=== PATIENT | female | born 1950 | race Caucasian/White ===

== ENCOUNTER → 2018-09-25 | Outpatient (CLI) | payer MEDICARE | END | disposition home or self-care (01) | LOC: CFH 08:37 | PROVIDERS: ATTEND Nurse Practitioner Family | DX: I67.82 Cerebral ischemia (principal) | CPT/HCPCS: 70551 ==

== ENCOUNTER → 2018-11-28 | Outpatient (CLI) | payer MEDICARE | END | disposition home or self-care (01) | LOC: CFH 11:17 | PROVIDERS: ATTEND Nurse Practitioner Family | DX: Z12.31 Encounter for screening mammogram for malignant neoplasm of breast (principal); N63.12 Unspecified lump in the right breast, upper inner quadrant | CPT/HCPCS: 77063; 77067 ==

== ENCOUNTER → 2018-12-10 | Outpatient (CLI) | payer MEDICARE | END | disposition home or self-care (01) | LOC: CFH 14:21 | PROVIDERS: ATTEND Nurse Practitioner Family | DX: N63.11 Unspecified lump in the right breast, upper outer quadrant (principal) | CPT/HCPCS: 77065 ==

== ENCOUNTER 2018-12-17 09:28 | Outpatient (CLI) | payer MEDICARE ==
[2018-12-17] MEDS ORDERED: LIDOCAINE 1%-EPI 1:100K, 20ML ONE (13:14)
[2018-12-17] MEDS ORDERED: LIDOCAINE 1%, 20ML ONE (13:14)
[2018-12-17] MEDS ORDERED: SODIUM BICARBONATE 4.0%, 5ML ONE (13:14)
== END 2018-12-17 23:59 | disposition home or self-care (01) ==
LOC: CFH 09:28
PROVIDERS: ATTEND Nurse Practitioner Family
DX: C50.411 Malignant neoplasm of upper-outer quadrant of right female breast (principal); C50.211 Malignant neoplasm of upper-inner quadrant of right female breast; Z17.0 Estrogen receptor positive status [ER+]
CPT/HCPCS: 19083; 19084; 38505; 77065; 88305; 88341; 88342; 88360; 88361; J3490; 19285

== ENCOUNTER → 2018-12-25 | Outpatient (CLI) | payer MEDICARE ==
[~2018-12-25] MED LIST: GADOBUTROL 10 MMOL/10 ML VIAL ONE
== END | disposition home or self-care (01) ==
LOC: CFH 08:00
PROVIDERS: ATTEND Genetic Counselor, MS
DX: C50.911 Malignant neoplasm of unspecified site of right female breast (principal); E04.2 Nontoxic multinodular goiter
CPT/HCPCS: A9585; C8908; C8937

== ENCOUNTER 2019-01-21 12:55 | Outpatient (CLI) | payer MEDICARE ==
[2019-01-21] MEDS ORDERED: LIDOCAINE-MPF 1%, 5ML ONE (13:26)
[2019-01-22] MEDS ORDERED: NORT75CA PO (15:11)
[2019-01-22] MEDS ORDERED: [UNRECOGNIZED DRUG - CODE] VG (15:11)
[2019-01-22] MEDS ORDERED: ONDA4TAB13 SL (15:11)
[2019-01-22] MEDS ORDERED: CHOL5000 PO (15:11)
[2019-01-22] MEDS ORDERED: ALPR-475 PO (15:11)
[2019-01-22] MEDS ORDERED: LISI-167 PO (15:11)
[2019-01-22] MEDS ORDERED: PROP10DR4 EACHEYE (15:11)
[2019-01-22] MEDS ORDERED: ROSU20TA2 PO (15:11)
[2019-01-22] MEDS ORDERED: CETI10TA24 PO (15:11)
[2019-01-22] MEDS ORDERED: TOLN133P TD (15:11)
[2019-01-22] MEDS ORDERED: SERT100T32 PO (15:11)
[2019-01-22] MEDS ORDERED: LIRA0.6P SQ (15:11)
[2019-01-22] MEDS ORDERED: LORA1TAB PO (15:11)
[2019-01-22] MEDS ORDERED: LIDO76.5 TD (15:11)
[2019-01-22] MEDS ORDERED: FLUN25SP NS (15:11)
[2019-01-22] MEDS ORDERED: SILV20CR13 TD (15:11)
[2019-01-22] MEDS ORDERED: PIOG30TA4 PO (15:11)
[2019-01-22] MEDS ORDERED: INSU100I32 TD (15:11)
[2019-01-22] MEDS ORDERED: LACT1CAP37 PO (15:11)
[2019-01-22] MEDS ORDERED: MECL25TA4 PO (15:11)
[2019-01-22] MEDS ORDERED: RANI150T4 PO (15:11)
[2019-01-22] MEDS ORDERED: CLOP75TA52 PO (15:11)
[2019-01-22] MEDS ORDERED: OMEG1CAP34 PO (15:11)
[2019-01-22] MEDS ORDERED: FESO8TAB PO (15:11)
[2019-01-22] MEDS ORDERED: DAPA10TA PO (15:11)
[2019-01-22] MEDS ORDERED: CLOT15CR5 TD (15:11)
[2019-01-22] MEDS ORDERED: FLUC150T2 PO (15:11)
[2019-01-22] MEDS ORDERED: ATEN25TA PO (15:11)
[2019-01-22] MEDS ORDERED: FURO20TA3 PO (15:11)
[2019-01-22] MEDS ORDERED: MULT1TAB60 PO (15:11)
[2019-01-22] MEDS ORDERED: PANT20TA3 PO (15:11)
== END 2019-01-21 23:59 | disposition home or self-care (01) ==
LOC: RAD 12:55
PROVIDERS: ATTEND Genetic Counselor, MS
DX: E04.1 Nontoxic single thyroid nodule (principal)
CPT/HCPCS: 10005; 88173

== ENCOUNTER 2019-01-22 14:30 | Outpatient (CLI) | payer MEDICARE ==
[2019-01-22] MEDS ORDERED: [UNRECOGNIZED DRUG - CODE] VG (15:11)
[2019-01-22] MEDS ORDERED: MULT1TAB60 PO (15:11)
[2019-01-22] MEDS ORDERED: FESO8TAB PO (15:11)
[2019-01-22] MEDS ORDERED: LISI-167 PO (15:11)
[2019-01-22] MEDS ORDERED: LACT1CAP37 PO (15:11)
[2019-01-22] MEDS ORDERED: PANT20TA3 PO (15:11)
[2019-01-22] MEDS ORDERED: SILV20CR13 TD (15:11)
[2019-01-22] MEDS ORDERED: FLUC150T2 PO (15:11)
[2019-01-22] MEDS ORDERED: ROSU20TA2 PO (15:11)
[2019-01-22] MEDS ORDERED: DAPA10TA PO (15:11)
[2019-01-22] MEDS ORDERED: ATEN25TA PO (15:11)
[2019-01-22] MEDS ORDERED: SERT100T32 PO (15:11)
[2019-01-22] MEDS ORDERED: ALPR-475 PO (15:11)
[2019-01-22] MEDS ORDERED: INSU100I32 TD (15:11)
[2019-01-22] MEDS ORDERED: CETI10TA24 PO (15:11)
[2019-01-22] MEDS ORDERED: CLOP75TA52 PO (15:11)
[2019-01-22] MEDS ORDERED: OMEG1CAP34 PO (15:11)
[2019-01-22] MEDS ORDERED: LIDO76.5 TD (15:11)
[2019-01-22] MEDS ORDERED: PIOG30TA4 PO (15:11)
[2019-01-22] MEDS ORDERED: CHOL5000 PO (15:11)
[2019-01-22] MEDS ORDERED: LORA1TAB PO (15:11)
[2019-01-22] MEDS ORDERED: FURO20TA3 PO (15:11)
[2019-01-22] MEDS ORDERED: LIRA0.6P SQ (15:11)
[2019-01-22] MEDS ORDERED: CLOT15CR5 TD (15:11)
[2019-01-22] MEDS ORDERED: NORT75CA PO (15:11)
[2019-01-22] MEDS ORDERED: FLUN25SP NS (15:11)
[2019-01-22] MEDS ORDERED: MECL25TA4 PO (15:11)
[2019-01-22] MEDS ORDERED: ONDA4TAB13 SL (15:11)
[2019-01-22] MEDS ORDERED: RANI150T4 PO (15:11)
[2019-01-22] MEDS ORDERED: PROP10DR4 EACHEYE (15:11)
[2019-01-22] MEDS ORDERED: TOLN133P TD (15:11)
[2019-01-22 15:58] LABS: ALANINE AMINOTRANSFERASE 37 U/L (12-78); ALBUMIN 3.5 g/dL (3.4-5.0); ANION GAP 4 mmol/L (5-15); CALCIUM 9.5 mg/dL (8.5-10.1); CHLORIDE 107 mmol/L (98-107); CREATININE 1.04 mg/dL (0.55-1.02)
[2019-01-22 16:01] LABS: ALKALINE PHOSPHATASE 53 U/L (45-117); BILIRUBIN,TOTAL 0.3 mg/dL (0.2-1.0); TOTAL PROTEIN 7.5 g/dL (6.4-8.2)
[2019-01-22 16:19] LABS: BASOPHILS # (AUTO) 0.03 x10^3/uL (0-0.1); BASOPHILS % (AUTO) 1 % (0-1); EOSINOPHILS # (AUTO) 0.11 x10^3/uL (0-0.4); EOSINOPHILS % (AUTO) 2 % (1-7); LYMPHOCYTES # (AUTO) 2.42 x10^3/uL (1-3.4); LYMPHOCYTES % (AUTO) 36 % (22-44); MD NO; MEAN CORPUSCULAR HEMOGLOBIN 22.9 pg (27.0-34.8); MEAN CORPUSCULAR HGB CONC 31.1 g/dL (32.4-35.8); MEAN CORPUSCULAR VOLUME 73.8 fL (80-100); MEAN PLATELET VOLUME 10.3 fL (7.4-10.4); MONOCYTES # (AUTO) 0.61 x10^3/uL (0.2-0.8); MONOCYTES % (AUTO) 9 % (2-9); NEUTROPHILS # (AUTO) 3.53 x10^3/uL (1.8-6.8); NEUTROPHILS % (AUTO) 53 % (42-75); PLATELET COUNT 214 x10^3/uL (130-400); RED BLOOD COUNT 5.71 x10^6/uL (3.82-5.3); RED CELL DISTRIBUTION WIDTH 16.1 % (9.6-15.2)
== END 2019-01-22 23:59 | disposition home or self-care (01) ==
LOC: STAR 14:30
PROVIDERS: ATTEND Surgery
DX: Z01.812 Encounter for preprocedural laboratory examination (principal); C50.811 Malignant neoplasm of overlapping sites of right female breast; R94.31 Abnormal electrocardiogram [ECG] [EKG]
CPT/HCPCS: 36415; 80053; 85025; 93005

== ENCOUNTER 2019-01-29 07:42 | Day surgery (SDC) | payer MEDICARE ==
[~2019-01-29] VITALS: Ht 162.6 cm; Wt 103.4 kg
[~2019-01-29 07:42] MED LIST changes: +ALPR0.5T7 PO; +ATEN25TA PO; +CETI10TA24 PO; +CHOL5000 PO; +CLOP75TA52 PO; +CLOT15CR5 TD; +DAPA10TA PO; +FESO8TAB PO; +FLUC150T2 PO; +FLUN25SP NS; +FURO20TA3 PO; -GADOBUTROL 10 MMOL/10 ML VIAL ONE; +INSU100I32 TD; +LACT1CAP37 PO; +LIDO76.5 TD; +LIRA0.6P SQ; +LISI-167 PO; +LORA1TAB PO; +MECL25TA4 PO; +MULT1TAB60 PO; +NORT75CA PO; +OMEG1CAP34 PO; +ONDA4TAB13 SL; +PANT20TA3 PO; +PIOG30TA4 PO; +PROP10DR4 EACHEYE; +RANI150T4 PO; +ROSU20TA2 PO; +SERT100T32 PO; +SILV20CR13 TD; +TOLN133P TD; +[UNRECOGNIZED DRUG - CODE] VG
[2019-01-29] MEDS ORDERED: CEFAZOLIN 1,000 MG ONE ×2 (08:56→12:34)
[2019-01-29] MEDS ORDERED: BUPIVACAINE/PF-EPI 0.5% 1:200K ONE (08:56)
[2019-01-29] MEDS ORDERED: GENTAMICIN 80 MG/2 ML ONE (08:56)
[2019-01-29] MEDS ORDERED: BACITRACIN 50,000 UNIT ONE (08:57)
[2019-01-29] MEDS ORDERED: ISOSULFAN BLUE 10 MG/ML, 5ML IV ONE (08:57)
[2019-01-29] MEDS ORDERED: SODIUM BICARBONATE 4.0%, 5ML ONE (09:38)
[2019-01-29] MEDS ORDERED: LIDOCAINE 1%, 20ML ONE (09:38)
[2019-01-29] MEDS ORDERED: LIDOCAINE 1%-EPI 1:100K, 20ML ONE (09:38)
[2019-01-29 10:42] VITALS: BP 144/87
[2019-01-29] MEDS ORDERED: LACTATED RINGERS 1,000 ML IV SCH ×2 (10:56→21:30)
[2019-01-29] MEDS ORDERED: ALBUTEROL SULFATE 2.5 MG/3 ML NPPB PRN (11:00)
[2019-01-29] MEDS ORDERED: PROMETHAZINE 25 MG/ML, 1ML IV PRN (11:00)
[2019-01-29] MEDS ORDERED: hydrALAzine 20 MG/ML, 1ML IV PRN (11:00)
[2019-01-29] MEDS ORDERED: ACETAMINOPHEN 500 MG TABLET PO ONE (11:00)
[2019-01-29] MEDS ORDERED: HALOPERIDOL 5 MG/ML IV PRN ×2 (11:00)
[2019-01-29] MEDS ORDERED: OXYcodone 5 MG/5 ML ORAL.SOL UDC PO PRN (11:00)
[2019-01-29] MEDS ORDERED: DIAZEPAM 5 MG/ML, 2ML IVPush PRN (11:00)
[2019-01-29] MEDS ORDERED: MIDAZOLAM 1 MG/ML, 2ML IV PRN (11:00)
[2019-01-29] MEDS ORDERED: LABETALOL 5MG/ML, 20ML IV PRN (11:00)
[2019-01-29] MEDS ORDERED: DEXTROSE 50%, 50ML SYRINGE IVPush ONE (11:00)
[2019-01-29] MEDS ORDERED: PROCHLORPERAZINE 5 MG/ML, 2ML IV PRN (11:00)
[2019-01-29] MEDS ORDERED: LORazepam 2 MG/ML, 1ML IVPush PRN (11:00)
[2019-01-29] MEDS ORDERED: DIPHENHYDRAMINE 50 MG/ML, 1ML IVPush PRN (11:00)
[2019-01-29] MEDS ORDERED: GABAPENTIN 300 MG CAPSULE PO ONE (11:00)
[2019-01-29] MEDS ORDERED: ONDANSETRON ODT 8 MG PO ONE (11:00)
[2019-01-29] MEDS ORDERED: MEPERIDINE/PF 25MG/0.5ML IVPush PRN (11:00)
[2019-01-29] MEDS ORDERED: METOPROLOL 1 MG/ML, 5ML IV PRN (11:00)
[2019-01-29] MEDS ORDERED: LOVENOX SQ (11:03)
[2019-01-29] MEDS ORDERED: FENTANYL PF 250 MCG/5ML ONE (11:09)
[2019-01-29] MEDS ORDERED: MIDAZOLAM 1 MG/ML, 2ML ONE (11:09)
[2019-01-29] MEDS ORDERED: SUCCINYLCHOLINE 20 MG/ML, 10ML ONE (12:34)
[2019-01-29] MEDS ORDERED: GLYCOPYRROLATE 0.2MG/1ML, 5ML ONE (12:34)
[2019-01-29] MEDS ORDERED: PROPOFOL 10 MG/ML, 20ML ONE (12:34)
[2019-01-29] MEDS ORDERED: ONDANSETRON 2MG/ML, 2ML ONE (12:34)
[2019-01-29] MEDS ORDERED: NEOSTIGMINE 1 MG/ML, 10ML ONE (12:34)
[2019-01-29] MEDS ORDERED: ROCURONIUM 10MG/ML,5ML ONE (12:34)
[2019-01-29] MEDS ORDERED: DEXAMETHASONE 4 MG/ML, 1ML ONE (12:34)
[2019-01-29] MEDS ORDERED: OXYcodone 5 MG/5 ML ORAL.SOL UDC ONE (15:09)
[2019-01-29] MEDS ORDERED: FENTANYL PF 100 MCG/2ML ONE (15:09)
[2019-01-29] MEDS: FENTANYL PF 100 MCG/2ML IV PRN ×2 (15:11→15:50)
[2019-01-29] MEDS ORDERED: HYDROmorphone 2 MG/ML, 1ML ONE (15:50)
[2019-01-29] MEDS: HYDROmorphone 2 MG/ML, 1ML IVPush PRN ×2 (15:51→15:56)
[2019-01-29 19:30] VITALS: BP 141/77
[2019-01-29] MEDS ORDERED: ONDANSETRON 2MG/ML, 2ML IVPush PRN (21:30)
[2019-01-29] MEDS ORDERED: MORPHINE SULFATE 4 MG/ML, 1ML IVPush PRN (21:30)
== END 2019-01-29 22:30 | disposition home or self-care (01) ==
LOC: OR 07:42 → 4NOR 19:16 → OUT 22:30
PROVIDERS: ATTEND Plastic Surgery
DX: C50.811 Malignant neoplasm of overlapping sites of right female breast (principal); N62 Hypertrophy of breast; N60.42 Mammary duct ectasia of left breast; E11.9 Type 2 diabetes mellitus without complications; K21.9 Gastro-esophageal reflux disease without esophagitis; E78.5 Hyperlipidemia, unspecified; I10 Essential (primary) hypertension; F32.9 Major depressive disorder, single episode, unspecified; G47.33 Obstructive sleep apnea (adult) (pediatric); J45.909 Unspecified asthma, uncomplicated; E66.9 Obesity, unspecified; Z68.39 Body mass index [BMI] 39.0-39.9, adult; Z79.02 Long term (current) use of antithrombotics/antiplatelets; Z79.899 Other long term (current) drug therapy; Z86.73 Personal history of transient ischemic attack (TIA), and cerebral infarction without residual deficits; Z86.718 Personal history of other venous thrombosis and embolism; Z88.2 Allergy status to sulfonamides; Z88.8 Allergy status to other drugs, medicaments and biological substances; Z91.012 Allergy to eggs; Z91.011 Allergy to milk products; Z98.51 Tubal ligation status; Z80.3 Family history of malignant neoplasm of breast
CPT/HCPCS: 19281; 19301; 19318; 19366; 38525; 38792; 76098; 82962; 88305; 88307; 88329; 88333; A9541; C1729; J0330; J0690; J1100; J1170; J2250; J2405; J2704; J2710; J3010; J3490; J7120; Q0162; G0378; J1580

== ENCOUNTER 2019-02-12 07:18 | Outpatient (CLI) | payer MEDICARE ==
[~2019-02-12 07:18] MED LIST changes: +LOVENOX SQ
== END 2019-02-12 23:59 | disposition home or self-care (01) ==
LOC: ROC 07:18
PROVIDERS: ATTEND Radiology Radiation Oncology
DX: C50.411 Malignant neoplasm of upper-outer quadrant of right female breast (principal)
CPT/HCPCS: G0463

== ENCOUNTER 2019-04-27 10:19 | Outpatient (CLI) | payer MEDICARE | END 2019-04-27 23:59 | disposition home or self-care (01) | LOC: CFH 10:19 → EDSTATUS 11:00 → CFH 23:59 | PROVIDERS: ATTEND Internal Medicine Hematology & Oncology | DX: Z13.820 Encounter for screening for osteoporosis (principal); N95.9 Unspecified menopausal and perimenopausal disorder; R60.9 Edema, unspecified; M79.662 Pain in left lower leg; M79.661 Pain in right lower leg; C50.811 Malignant neoplasm of overlapping sites of right female breast; Z17.0 Estrogen receptor positive status [ER+] | CPT/HCPCS: 77080; 93970; G0463 ==

== ENCOUNTER → 2019-06-24 | Outpatient (CLI) | payer MEDICARE ==
[~2019-06-24] MED LIST changes: +REGADENOSON 0.4 MG/5 ML SYRINGE ONE
== END | disposition home or self-care (01) ==
LOC: CFH 06:47
PROVIDERS: ATTEND Internal Medicine Cardiovascular Disease
DX: I08.8 Other rheumatic multiple valve diseases (principal); I99.9 Unspecified disorder of circulatory system; Z86.73 Personal history of transient ischemic attack (TIA), and cerebral infarction without residual deficits; Z85.3 Personal history of malignant neoplasm of breast
CPT/HCPCS: 78452; 93017; 93306; A9502; J2785

== ENCOUNTER 2019-07-29 13:31 | Outpatient (CLI) | payer MEDICARE ==
[~2019-07-29 13:31] MED LIST changes: -REGADENOSON 0.4 MG/5 ML SYRINGE ONE
== END 2019-07-29 23:59 | disposition home or self-care (01) ==
LOC: CFH 13:31
PROVIDERS: ATTEND Radiology Radiation Oncology
DX: C50.411 Malignant neoplasm of upper-outer quadrant of right female breast (principal); R92.1 Mammographic calcification found on diagnostic imaging of breast
CPT/HCPCS: 77065; G0279

== ENCOUNTER → 2019-08-12 | Outpatient (CLI) | payer MEDICARE | END | disposition home or self-care (01) | LOC: ROC 08:02 | PROVIDERS: ATTEND Radiology Radiation Oncology | DX: C50.411 Malignant neoplasm of upper-outer quadrant of right female breast (principal) | CPT/HCPCS: G0463 ==

== ENCOUNTER → 2019-08-24 | Outpatient (CLI) | payer MEDICARE ==
[~2019-08-24] MED LIST changes: +ATEN50TA41 PO; -CETI10TA24 PO; +CETI10TA26 PO; +FAMO40TA61 PO; +LETR2.5T3 PO; +MECL-101 PO; -MECL25TA4 PO; -PIOG30TA4 PO; +PIOG30TA68 PO; +RIVA10TA2 PO; +[UNRECOGNIZED DRUG - CODE] TD
[2019-08-24 09:54] LABS: PROTHROMBIN TIME 10.6 Seconds (9.6-11.5)
== END | disposition home or self-care (01) ==
LOC: LAB 09:28
PROVIDERS: ATTEND Nurse Practitioner
DX: I82.402 Acute embolism and thrombosis of unspecified deep veins of left lower extremity (principal)
CPT/HCPCS: 36415; 85610; 85730

== ENCOUNTER → 2019-08-24 | Outpatient (CLI) | payer MEDICARE ==
[2019-08-24 09:57] LABS: ALBUMIN 3.7 g/dL (3.4-5.0); ANION GAP 7 mmol/L (5-15); CALCIUM 9.5 mg/dL (8.5-10.1); CHLORIDE 107 mmol/L (98-107); CHOLESTEROL, TOTAL 168 mg/dL (140-239); CREATININE 1.07 mg/dL (0.55-1.02); TOTAL IRON BINDING CAPACITY 395 mcg/dL (250-450); TRIGLYCERIDES 69 mg/dL (50-200); VLDL CHOLESTEROL 14 mg/dL (0-25)
[2019-08-24 10:16] LABS: MEAN CORPUSCULAR HGB CONC 31.5 g/dL (32.4-35.8); MEAN CORPUSCULAR VOLUME 73.2 fL (80-100); MEAN PLATELET VOLUME 9.8 fL (7.4-10.4); PLATELET COUNT 213 x10^3/uL (130-400); RED BLOOD COUNT 5.76 x10^6/uL (3.82-5.3); RED CELL DISTRIBUTION WIDTH 16.1 % (9.6-15.2)
[2019-08-24 10:23] LABS: % IRON SATURATION 21 % (20-55); ALANINE AMINOTRANSFERASE 31 U/L (12-78); ALKALINE PHOSPHATASE 59 U/L (45-117); BILIRUBIN,TOTAL 0.4 mg/dL (0.2-1.0); HDL CHOL % 49 % (28-40); HDL CHOLESTEROL (DIRECT) 83 mg/dL (40-60); IRON LEVEL 83 mcg/dL (50-170); LDL CHOLESTEROL,CALCULATED 71 mg/dL (54-169); LDL/HDL RATIO 0.9 (0.5-3.0); PREALBUMIN 22.4 mg/dL (20.0-40.0); TOTAL PROTEIN 7.8 g/dL (6.4-8.2); TRANSFERRIN 302 mg/dL (200-360)
[2019-08-24 10:30] LABS: BASOPHILS % (AUTO) 0 % (0-1); EOSINOPHILS # (AUTO) 0.06 x10^3/uL (0-0.4); EOSINOPHILS % (AUTO) 1 % (1-7); LYMPHOCYTES # (AUTO) 1.04 x10^3/uL (1-3.4); LYMPHOCYTES % (AUTO) 23 % (22-44); MD SCAN; MONOCYTES # (AUTO) 0.63 x10^3/uL (0.2-0.8); MONOCYTES % (AUTO) 14 % (2-9); NEUTROPHILS % (AUTO) 62 % (42-75)
== END | disposition home or self-care (01) ==
LOC: STAR 08:14
PROVIDERS: ATTEND Thoracic Surgery (Cardiothoracic Vascular Surgery)
DX: Z01.818 Encounter for other preprocedural examination (principal)
CPT/HCPCS: 36415; 71046; 80053; 80061; 82306; 82607; 82728; 83540; 83550; 83970; 84134; 84432; 84466; 85025; 86800; 93005

== ENCOUNTER → 2019-12-08 | Outpatient (CLI) | payer MEDICARE ==
[~2019-12-08] MED LIST changes: +HYDR-3241 PO
== END | disposition home or self-care (01) ==
LOC: CFH 11:59
PROVIDERS: ATTEND Internal Medicine Hematology & Oncology
DX: Z12.31 Encounter for screening mammogram for malignant neoplasm of breast (principal)
CPT/HCPCS: 77063; 77067

== ENCOUNTER → 2019-12-21 | Outpatient (CLI) | payer MEDICARE | END | disposition home or self-care (01) | LOC: CFH 10:24 | PROVIDERS: ATTEND Nurse Practitioner Family | DX: R41.3 Other amnesia (principal) | CPT/HCPCS: 70551 ==

== ENCOUNTER 2020-01-01 14:41 | Outpatient (CLI) | payer MEDICARE ==
[~2020-01-01 14:41] MED LIST changes: +CLOT15CR26 TD; -CLOT15CR5 TD; +MULT-449 PO; -MULT1TAB60 PO
== END 2020-01-01 23:59 | disposition home or self-care (01) ==
LOC: CFH 14:41
PROVIDERS: ATTEND Genetic Counselor, MS
DX: R92.2 Inconclusive mammogram (principal)
CPT/HCPCS: 76641

== ENCOUNTER → 2020-03-14 | Outpatient (CLI) | payer MEDICARE | END | disposition home or self-care (01) | LOC: ROC 07:09 | PROVIDERS: ATTEND Radiology Radiation Oncology | DX: C50.411 Malignant neoplasm of upper-outer quadrant of right female breast (principal) | CPT/HCPCS: G0463 ==

== ENCOUNTER → 2020-03-30 | Outpatient (CLI) | payer MEDICARE ==
[~2020-03-30] MED LIST changes: -CETI10TA26 PO; +CETI10TA76 PO; -PANT20TA3 PO; +PANT20TA4 PO
== END | disposition home or self-care (01) ==
LOC: CFH 07:31
PROVIDERS: ATTEND Genetic Counselor, MS
DX: R74.8 Abnormal levels of other serum enzymes (principal)
CPT/HCPCS: 76700

== ENCOUNTER → 2020-08-12 | Outpatient (CLI) | payer MEDICARE | END | disposition home or self-care (01) | LOC: RAD 07:35 | PROVIDERS: ATTEND Thoracic Surgery (Cardiothoracic Vascular Surgery) | DX: Z09 Encounter for follow-up examination after completed treatment for conditions other than malignant neoplasm (principal); R11.0 Nausea; R10.11 Right upper quadrant pain | CPT/HCPCS: 78227; A9537 ==

== ENCOUNTER → 2020-08-16 | Outpatient (CLI) | payer MEDICARE ==
[~2020-08-16] MED LIST changes: +ASCO120P PO; +CANA300T PO; +CLOT30CR17 TP; +HALO15OI4 TP; +LIDO76.5 TP; +LORA-446 PO; +OMEP40CA42 PO; +PROP10DR2 EACHEYE; +SILV20CR13 TP; +TERB125S TP; +TOLT4CAP12 PO; +VIACTIV CALCIUM PO; +ZINC50CA PO; +[UNRECOGNIZED DRUG - OTHER] PO; +[UNRECOGNIZED DRUG - OTHER] PO; +omega 3 PO
[2020-08-16 12:52] LABS: INTERNATIONAL NORMALIZED RATIO 0.97 (0.93-1.1); PROTHROMBIN TIME 10.4 Seconds (9.6-11.5)
[2020-08-16 12:53] LABS: ALBUMIN 3.8 g/dL (3.4-5.0); ANION GAP 6 mmol/L (5-15); BASOPHILS % (AUTO) 1 % (0-1); CALCIUM 9.3 mg/dL (8.5-10.1); CHLORIDE 108 mmol/L (98-107); EOSINOPHILS % (AUTO) 2 % (1-7); LYMPHOCYTES % (AUTO) 25 % (22-44); MEAN CORPUSCULAR HEMOGLOBIN 22.4 pg (27.0-34.8); MEAN CORPUSCULAR HGB CONC 31.6 g/dL (32.4-35.8); MEAN PLATELET VOLUME 9.4 fL (7.4-10.4); MONOCYTES % (AUTO) 12 % (2-9); NEUTROPHILS % (AUTO) 61 % (42-75); PLATELET COUNT 206 x10^3/uL (130-400); RED BLOOD COUNT 5.49 x10^6/uL (3.82-5.3); RED CELL DISTRIBUTION WIDTH 16.3 % (9.6-15.2)
[2020-08-16 12:55] LABS: MD NO
[2020-08-16 12:57] LABS: ALANINE AMINOTRANSFERASE 74 U/L (12-78); ALKALINE PHOSPHATASE 85 U/L (45-117); BILIRUBIN,TOTAL 0.5 mg/dL (0.2-1.0); CREATININE 0.96 mg/dL (0.55-1.02); TOTAL PROTEIN 7.8 g/dL (6.4-8.2)
== END | disposition home or self-care (01) ==
LOC: STAR 11:17
PROVIDERS: ATTEND Orthopaedic Surgery
DX: Z01.810 Encounter for preprocedural cardiovascular examination (principal); Z01.818 Encounter for other preprocedural examination; M17.12 Unilateral primary osteoarthritis, left knee; M25.562 Pain in left knee; I25.2 Old myocardial infarction; I51.7 Cardiomegaly; Z79.01 Long term (current) use of anticoagulants; Z20.822 Contact with and (suspected) exposure to COVID-19
CPT/HCPCS: 80053; 83036; 85025; 85610; 85730; 87081; 87635; 87806; 93005; G0475

== ENCOUNTER 2020-10-31 11:57 | Outpatient (CLI) | payer MEDICARE | END 2020-10-31 23:59 | disposition home or self-care (01) | LOC: CFH 11:57 | PROVIDERS: ATTEND Nurse Practitioner | DX: R22.42 Localized swelling, mass and lump, left lower limb (principal) ==

== ENCOUNTER → 2020-11-02 | Outpatient (CLI) | payer MEDICARE | END | disposition home or self-care (01) | LOC: RAD 10:38 | PROVIDERS: ATTEND Nurse Practitioner Family | DX: R10.13 Epigastric pain (principal); R11.0 Nausea | CPT/HCPCS: 78264; A9541 ==

== ENCOUNTER → 2020-12-09 | Outpatient (CLI) | payer MEDICARE ==
[~2020-12-09] MED LIST changes: -LACT1CAP37 PO; +LACT1CAP47 PO; -OMEP40CA42 PO; +OMEP40CA8 PO
== END | disposition home or self-care (01) ==
LOC: CFH 14:01
PROVIDERS: ATTEND Radiology Radiation Oncology
DX: C50.411 Malignant neoplasm of upper-outer quadrant of right female breast (principal)
CPT/HCPCS: 76641

== ENCOUNTER 2020-12-22 12:05 | Outpatient (CLI) | payer MEDICARE ==
[~2020-12-22 12:05] MED LIST changes: -TOLT4CAP12 PO; +TOLT4CAP27 PO
== END 2020-12-22 23:59 | disposition home or self-care (01) ==
LOC: CFH 12:05
PROVIDERS: ATTEND Radiology Radiation Oncology
DX: C50.411 Malignant neoplasm of upper-outer quadrant of right female breast (principal); R92.2 Inconclusive mammogram
CPT/HCPCS: 76642; 77062; 77066; G0279

== ENCOUNTER → 2021-01-18 | Outpatient (CLI) | payer MEDICARE ==
[~2021-01-18] MED LIST changes: +TOLT4CAP12 PO; -TOLT4CAP27 PO
== END | disposition home or self-care (01) ==
LOC: CFH 10:24
PROVIDERS: ATTEND Internal Medicine Hematology & Oncology
DX: C50.811 Malignant neoplasm of overlapping sites of right female breast (principal); N95.8 Other specified menopausal and perimenopausal disorders
CPT/HCPCS: 77080